=== PATIENT | female | born 1990 | race Caucasian/White ===

== ENCOUNTER 2017-05-16 18:34 | Emergency (ER) | payer SELFPAY ==
[2017-05-16] MEDS ORDERED: Acetaminophen 500 MG TAB ONE (19:27)
--- NOTE | 2017-05-16 20:36 | RAD ---
TWO VIEWS CHEST: Date: 05-16-17 Comparison: None. History: Flu-like symptoms. FINDINGS: No pneumothorax, pleural fluid, focal consolidation or alveolar edema. Heart and mediastinal contours are unremarkable. No acute osseous abnormality seen. IMPRESSION: No acute findings. POS: [facility]
== END 2017-05-16 20:15 | disposition home or self-care (01) ==
LOC: ERS 18:34
DX: J11.1 Influenza due to unidentified influenza virus with other respiratory manifestations (principal); J45.909 Unspecified asthma, uncomplicated; F17.210 Nicotine dependence, cigarettes, uncomplicated; Z71.6 Tobacco abuse counseling
CPT/HCPCS: 71046; 99406